=== PATIENT | female | born 1960 | race Two or more races ===

== ENCOUNTER 2018-03-21 15:43 | Outpatient (CLI) | payer OTHER ==
[~2018-03-21 15:43] MED LIST: CHLORDIAZEPOXIDE5 MG PO; HYDROCHLOROTH12.5 M1; HYDROCHLOROTH12.5 M1 PO; IOPHEN DM-100 MG/5 M PO; LEVSIN/SL0.125 MG PO; PRILOSEC20 MG PO; PROTONIX40 MG PO; PROVENTIL3 ML/2.5 M IH; ZESTRIL10 M1; ZESTRIL10 M1 PO; ZITHROMAX500 MG PO; ZYNCOF 20-400120 ML PO
== END 2018-03-21 15:49 | disposition home or self-care (01) ==
LOC: LAB 15:43
DX: J18.0 Bronchopneumonia, unspecified organism (principal); J06.9 Acute upper respiratory infection, unspecified; J11.1 Influenza due to unidentified influenza virus with other respiratory manifestations

== ENCOUNTER 2018-08-11 14:31 | Outpatient (CLI) | payer OTHER | END 2018-08-11 14:39 | disposition home or self-care (01) | LOC: SONOGRAMA 14:31 → MAMO-SONO 14:45 | DX: M75.30 Calcific tendinitis of unspecified shoulder (principal) ==

== ENCOUNTER 2018-09-22 09:46 | Outpatient (CLI) | payer OTHER | END 2018-09-22 09:52 | disposition home or self-care (01) | LOC: SONOGRAMA 09:46 | DX: E04.8 Other specified nontoxic goiter (principal) ==

== ENCOUNTER → 2019-03-03 08:16 | Outpatient (CLI) | payer OTHER | END | disposition home or self-care (01) | LOC: LAB 08:16 | DX: K58.1 Irritable bowel syndrome with constipation (principal); R10.13 Epigastric pain ==

== ENCOUNTER 2019-07-29 08:04 | Outpatient (CLI) | payer OTHER | END 2019-07-29 09:00 | disposition home or self-care (01) | LOC: TOM 08:04 | DX: R10.13 Epigastric pain (principal); R10.12 Left upper quadrant pain ==

== ENCOUNTER 2019-12-11 08:06 | Outpatient (CLI) | payer OTHER | END 2019-12-11 08:28 | disposition home or self-care (01) | LOC: NUCLEAR 08:06 | PROVIDERS: ATTEND Internal Medicine Cardiovascular Disease | DX: I25.10 Atherosclerotic heart disease of native coronary artery without angina pectoris (principal) | CPT/HCPCS: 78452; 93017; A9500 ==

== ENCOUNTER 2020-01-20 19:16 | Emergency (ER) | payer OTHER ==
[~2020-01-20] VITALS: Ht 172.7 cm; Wt 99.8 kg
== END 2020-01-20 22:19 | disposition home or self-care (01) ==
LOC: ER 19:16
DX: K58.8 Other irritable bowel syndrome (principal); Z03.818 Encounter for observation for suspected exposure to other biological agents ruled out

== ENCOUNTER 2020-06-17 11:29 | Emergency (ER) | payer OTHER ==
[~2020-06-17] VITALS: Ht 165.1 cm; Wt 106.1 kg
[2020-06-17] MEDS ORDERED: LEVSIN/SL0.125 MG SL (15:39)
[2020-06-17] MEDS ORDERED: PEPCID20 MG PO (15:39)
[2020-06-17] MEDS ORDERED: NAPROXEN500 MG PO (15:39)
== END 2020-06-17 16:13 | disposition home or self-care (01) ==
LOC: ER 11:29
DX: B34.9 Viral infection, unspecified (principal)